=== PATIENT | female | born 2000 | race Caucasian/White ===

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

== ENCOUNTER 2025-01-12 22:29 | Emergency (ER) | payer BC ==
[2025-01-13 00:01] VITALS: BP 134/70; PULSE 78
== END 2025-01-12 23:58 | disposition home or self-care (01) ==
LOC: DL.ED 22:29
DX: S50.811A Abrasion of right forearm, initial encounter (principal); S60.511A Abrasion of right hand, initial encounter; S80.811A Abrasion, right lower leg, initial encounter; Z79.899 Other long term (current) drug therapy; W55.03XA Scratched by cat, initial encounter
CPT/HCPCS: 99283